=== PATIENT | female | born 1955 | race Caucasian/White ===

== ENCOUNTER 2018-12-09 22:22 | Emergency (ER) | payer OTHER ==
[~2018-12-09] VITALS: Ht 165.1 cm; Wt 99.3 kg
--- NOTE | 2018-12-09 22:37 | RAD ---
CT scan of the head without contrast 12/09/2018 Clinical History: Right-sided weakness. Code stroke. Technique: Unenhanced, contiguous, 5 mm axial sections were obtained through the head. One or more of the following individualized dose reduction techniques were utilized for this study: 1. Automated exposure control. 2. Adjustment of the mA and/or kV according to patient size. 3. Use of iterative reconstruction technique. Findings: No previous studies are available for comparison. A hematoma is seen extending from the right temporal lobe superiorly to involve the right frontoparietal lobe. This measures 6.8 x 4.5 x 4.4 cm in AP, transverse and craniocaudal dimensions. There is surrounding edema and associated mass effect. The right lateral ventricle is effaced. Mild right to left midline shift is seen which measures 8 mm. No extra-axial fluid collection is noted. No skull fracture is seen. IMPRESSION: 6.8 cm acute hematoma is seen involving the right temporal/frontoparietal lobes with surrounding edema and associated mass effect as discussed above. FOR INTERNAL CODING PURPOSES Critical result: Findings discussed with THONY LORENZANA at 12/09/2018 10:32 PM. RESULT CODE: (C) Electronically signed by: Ludwig Fried MD (12/09/2018 10:34 PM) [facility]
[2018-12-09] MEDS: LABETALOL 20 MG/4 ML DISP.SYRIN. IVP ONE (22:45)
[2018-12-09 22:53] LABS: BASO % 0 % (0-3); EOS % 0 % (0-3); HEMATOCRIT 43.9 % (36.0-47.0); HEMOGLOBIN 14.8 g/dL (12.0-15.5); LYMPH # 0.9 x10^3/uL (1.0-4.8); LYMPH % 10 % (24-48); MEAN CORPUSCULAR HEMOGLOBIN 31 pg (25-35); MEAN CORPUSCULAR HGB CONC 34 g/dL (31-37); MEAN CORPUSCULAR VOLUME 92 fL (79-100); MONO # 0.4 x10^3/uL (0.0-1.1); MONO % 5 % (0-9); NEUT # 7.5 x10^3/uL (1.8-7.7); NEUT % 85 % (31-73); PLATELET COUNT 205 x10^3/uL (140-400); RED BLOOD COUNT 4.78 x10^6/uL (3.50-5.40); RED CELL DISTRIBUTION WIDTH 13.8 % (11.5-14.5); WHITE BLOOD COUNT 8.8 x10^3/uL (4.0-11.0)
[2018-12-09 22:58] LABS: CALCIUM 8.8 mg/dL (8.5-10.1); CREATININE 0.8 mg/dL (0.6-1.0); GFR 72.7
--- NOTE | 2018-12-09 23:00 | PHYS DOC ---
Past Medical History Past Medical History: Depression, Hypertension, Hypothyroid Past Surgical History: Other Additional Past Surgical Histo: spinal fusion, R wrist, Bilat breat biopsy, Left thumb Alcohol Use: Occasionally Drug Use: None Adult General Chief Complaint Chief Complaint: NEURO SYMPTOMS/DEFICITS [facility] HPI Patient is a 62 year old female who was brought here by family due to sudden onset of left side weakness. Family reported that patient started having severe headache around 6:30 pm today. She took some excedrine headache medication. She then went to the [facility] with her friend. AROUND 8 pm, she started having left side weakness, spilling her drink. Then her symptoms got progressive worse so they brought her here for evaluation. Patient is still complaining of headache, having slurred speech, right side facial droop, not able to move left side. Her said she has history of HTN, hypothyroidism and depression. She is on Lorsatan, levothyroxine, paxil. She is not on any blood thinner. No history of head injury. Review of Systems Review of Systems Constitutional: Denies fever or chills [] Eyes: Denies change in visual acuity, redness, or eye pain [] HENT: Denies nasal congestion or sore throat [] Respiratory: Denies cough or shortness of breath [] Cardiovascular: No additional information not addressed in HPI [] GI: Denies abdominal pain, nausea, vomiting, bloody stools or diarrhea [] : Denies dysuria or hematuria [] Musculoskeletal: Denies back pain or joint pain [] Integument: Denies rash or skin lesions [] Neurologic: Positive for headache, focal weakness or sensory changes. Endocrine: Denies polyuria or polydipsia [] All other systems were reviewed and found to be within normal limits, except as documented in this note. Current Medications Current Medications Current Medications Medications (Trade) Dose Ordered Sig/Zunilda Start Time Stop Time Status Last Admin Dose Admin Labetalol HCl (Normodyne Iv Push) 20 mg 1X ONCE 12/09/18 23:15 12/09/18 23:16 Nicardipine HCl (Cardene) 25 mg STK-MED ONCE 12/09/18 23:00 12/09/18 23:00 DC Nicardipine HCl 50 mg/Sodium Chloride 250 ml @ 0 mls/hr CONT PRN 12/09/18 23:00 Allergies Allergies Allergies Coded Allergies Type Severity Reaction Last Updated Verified No Known Drug Allergies 12/18/15 No Physical Exam Physical Exam Constitutional: Well developed, well nourished, In moderate acute distress, non-toxic appearance. [] HENT: Normocephalic, atraumatic, bilateral external ears normal, oropharynx moist, no oral exudates, nose normal. [] Eyes: PERRLA, EOMI, conjunctiva normal, no discharge. Neck: Normal range of motion, no tenderness, supple, no stridor. [] Cardiovascular:Heart rate regular rhythm, no murmur [] Lungs & Thorax: Bilateral breath sounds clear to auscultation [] Abdomen: Bowel sounds normal, soft, no tenderness, no masses, no pulsatile masses. [] Skin: Warm, dry, no erythema, no rash. [] Back: No tenderness, no CVA tenderness. [] Extremities: No tenderness, no cyanosis, no clubbing, No strengh or sensation on left upper or lower extremity. Neurologic: Alert and oriented X 3, slurred speech, right side facial droop, LEFT SIDE PARALYSIS. Psychologic: Affect normal, judgement normal, mood normal. [] Current Patient Data Lab Values Laboratory Tests Test 12/09/18 22:26 12/09/18 22:35 Glucose (Fingerstick) 120 mg/dL (70-99) H White Blood Count 8.8 x10^3/uL (4.0-11.0) Red Blood Count 4.78 x10^6/uL (3.50-5.40) Hemoglobin 14.8 g/dL (12.0-15.5) Hematocrit 43.9 % (36.0-47.0) Mean Corpuscular Volume 92 fL (79-100) Mean Corpuscular Hemoglobin 31 pg (25-35) Mean Corpuscular Hemoglobin Concent 34 g/dL (31-37) Red Cell Distribution Width 13.8 % (11.5-14.5) Platelet Count 205 x10^3/uL (140-400) Neutrophils (%) (Auto) 85 % (31-73) H Lymphocytes (%) (Auto) 10 % (24-48) L Monocytes (%) (Auto) 5 % (0-9) Eosinophils (%) (Auto) 0 % (0-3) Basophils (%) (Auto) 0 % (0-3) Neutrophils # (Auto) 7.5 x10^3/uL (1.8-7.7) Lymphocytes # (Auto) 0.9 x10^3/uL (1.0-4.8) L Monocytes # (Auto) 0.4 x10^3/uL (0.0-1.1) Eosinophils # (Auto) 0.0 x10^3/uL (0.0-0.7) Basophils # (Auto) 0.0 x10^3/uL (0.0-0.2) Prothrombin Time 13.0 SEC (11.7-14.0) Prothrombin Time INR 1.0 (0.8-1.1) Activated Partial Thromboplast Time 27 SEC (24-38) Sodium Level 142 mmol/L (136-145) Potassium Level 4.0 mmol/L (3.5-5.1) Chloride Level 103 mmol/L (98-107) Carbon Dioxide Level 28 mmol/L (21-32) Anion Gap 11 (6-14) Blood Urea Nitrogen 21 mg/dL (7-20) H Creatinine 0.8 mg/dL (0.6-1.0) Estimated GFR (Cockcroft-Gault) 72.7 BUN/Creatinine Ratio 26 (6-20) H Glucose Level 117 mg/dL (70-99) H Calcium Level 8.8 mg/dL (8.5-10.1) Total Bilirubin 0.5 mg/dL (0.2-1.0) Aspartate Amino Transferase (AST) 15 U/L (15-37) Alanine Aminotransferase (ALT) 21 U/L (14-59) Alkaline Phosphatase 64 U/L (46-116) Total Protein 7.5 g/dL (6.4-8.2) Albumin 3.8 g/dL (3.4-5.0) Albumin/Globulin Ratio 1.0 (1.0-1.7) Laboratory Tests 12/09/18 22:35 Laboratory Tests 12/09/18 22:35 EKG EKG EKG WAS DONE AT 2245, HEART RATE OF 70 BPM, SINUS RHYTHM, NO STEMI. Radiology/Procedures Radiology/Procedures [][facility] [address] [place] [address] IMAGING REPORT Signed PATIENT: YOMI CABA ACCOUNT: [id number] : 1955 LOCATION: ER AGE: 62 SEX: F EXAM STATUS: REG ER ORD. PHYSICIAN: THONY LORENZANA DO REASON: code stroke, right side weakness PROCEDURE: CT CODE STROKE HEAD WO CT scan of the head without contrast 12/09/2018 Clinical History: Right-sided weakness. Code stroke. Technique: Unenhanced, contiguous, 5 mm axial sections were obtained through the head. One or more of the following individualized dose reduction techniques were utilized for this study: 1. Automated exposure control. 2. Adjustment of the mA and/or kV according to patient size. 3. Use of iterative reconstruction technique. Findings: No previous studies are available for comparison. A hematoma is seen extending from the right temporal lobe superiorly to involve the right frontoparietal lobe. This measures 6.8 x 4.5 x 4.4 cm in AP, transverse and craniocaudal dimensions. There is surrounding edema and associated mass effect. The right lateral ventricle is effaced. Mild right to left midline shift is seen which measures 8 mm. No extra-axial fluid collection is noted. No skull fracture is seen. IMPRESSION: 6.8 cm acute hematoma is seen involving the right temporal/frontoparietal lobes with surrounding edema and associated mass effect as discussed above. FOR INTERNAL CODING PURPOSES Critical result: Findings discussed with THONY LORENZANA at 12/09/2018 10:32 PM. RESULT CODE: (C) Electronically signed by: Ludwig Fried MD (12/09/2018 10:34 PM) [facility] DICTATED and SIGNED BY: LUDWIG FRIED MD DATE: 12/09/182233 Course & Med Decision Making Course & Med Decision Making Pertinent Labs and Imaging studies reviewed. (See chart for details) Code stroke was activated when patient was placed in room. CT head was done, shown acute hematoma. Neurologist, Dr. MOY was notified, advised to call neurosurgery. Dr. Higgins, NEUROSURGEON automatic centrifugal station operator, was called at 1030 pm, recommended to transfer patient to [facility]. [facility] TRANSFER LINE WAS CALLED, DR. MARIE accepted patient for transfer there at 2250. Family was discussed about lab and ct finding, informed about need to transfer to , agreed with plan of care. Dragon Disclaimer Dragon Disclaimer This electronic medical record was generated, in whole or in part, using a voice recognition dictation system. Departure Departure Impression: Primary Impression: Spontaneous intraparenchymal intracranial hemorrhage, acute Additional Impression: Hypertension Disposition: 02 TRANSFER [facility] (patient was transferred to [facility], ACCEPTED BY DR. MARIE) Condition: STABLE Referrals: JIM MONROY (PCP) Problem Qualifiers THOYN LORENZANA DO Dec 09, 2018 23:00
[2018-12-09 23:04] LABS: ALBUMIN 3.8 g/dL (3.4-5.0); TOTAL BILIRUBIN 0.5 mg/dL (0.2-1.0); TOTAL PROTEIN 7.5 g/dL (6.4-8.2)
[2018-12-09 23:16] VITALS: BP 181/119
--- NOTE | 2018-12-10 05:51 | EKG ---
[facility] [address] [place] [address] Test Date: 2018-12-09 Test Time: 22:44:50 Pat Name: YOMI CABA Department: Room: Gender: F [employer] Stamping Press Operator: : 1955 Requested By: THONY LORENZANA Order Number: [id number] Reading MD: Measurements Intervals [place] Rate: 69 P: 54 OR: 170 QRS: 66 QRSD: 90 T: 31 QT: 456 QTc: 495 Interpretive Statements SINUS RHYTHM T ABNORMALITY IN INFERIOR LEADS PROLONGED QT ABNORMAL ECG No previous ECG available for comparison
== END 2018-12-09 23:23 | disposition short-term general hospital (02) ==
LOC: ER 22:22
DX: I61.9 Nontraumatic intracerebral hemorrhage, unspecified (principal); R53.1 Weakness; I10 Essential (primary) hypertension; F32.9 Major depressive disorder, single episode, unspecified; E03.9 Hypothyroidism, unspecified
CPT/HCPCS: 36415; 51702; 70450; 80053; 82962; 84484; 85025; 85610; 85730; 93005; 96365; 96375; 99285; J3490; J7050; J7030

== ENCOUNTER → 2020-06-01 | Outpatient (CLI) | payer OTHER ==
--- NOTE | 2020-06-06 10:30 | KCIC ---
Bilateral digital screening mammograms: Reason for examination: Routine screening. Comparison is made to previous outside studies dated 05/02/2015 and 05/25/2014. Interpretation was made with the benefit of CAD. The skin and nipples show no abnormalities. No abnormal axillary lymph nodes are seen. The breast par enchyma is extremely dense. (Breast density: Category D.) There are no dominant masses, suspicious ca lcifications or architectural distortion. A few punctate calcifications are again seen. Impression: No evidence of malignancy. Recommend routine screening. Your patient's mammogram demonstrates that she has dense breast tissue (breast density category C or D), which could hide abnormalities, and if she has other risk factors for breast cancer that have bee n identified, she might benefit from supplemental screening tests that may be suggested by you as her ordering physician. Dense breast tissue, in and of itself, is a relatively common condition. Therefo re, this information is not provided to cause undue concern, but rather to raise your awareness and t o promote discussion with your patient regarding the presence of other risk factors, in addition to d ense breast tissue. Your patient's mammography results will be sent to her. BI-RAD Category 2: Benign. "Our facility is accredited by the [employer] Mammography Program." This patient's information has been entered into a reminder system for the patient to be notified wit h the results of her examination and a target date for the next mammogram. Electronically signed by: Adri Forbes MD (06/06/2020 10:28 AM) [id number]
== END ==
LOC: KCIC MAMMO 13:58
PROVIDERS: ATTEND Family Medicine
DX: Z12.31 Encounter for screening mammogram for malignant neoplasm of breast (principal)
CPT/HCPCS: 77067